=== PATIENT | female | born 1950 | race Two or more races ===

== ENCOUNTER 2024-02-02 10:56 | Outpatient (REF) | payer MEDICARE, SELFPAY ==
[2024-02-02 12:48] LABS: Influenza Virus A Antigen Negative; Influenza Virus B Antigen Negative; Internal Control Within Normal Limits; Strep A Antigen Screen Negative
[2024-02-02 15:19] LABS: SARS-CoV-2 NAA DETECTED (NOT DETECTE)
== END 2024-02-02 10:57 | disposition home or self-care (01) ==
LOC: LAB 10:56
PROVIDERS: PCP Family Medicine; Visit Provider Nurse Practitioner Family
DX: J06.9 Acute upper respiratory infection, unspecified (principal)
CPT/HCPCS: 87070; 87635; 87804; 87880